=== PATIENT | female | born 1980 | race Hispanic/Latino ===

== ENCOUNTER 2017-05-22 10:39 | Emergency (ER) | payer BC ==
--- NOTE | 2017-05-22 12:45 | RAD ---
RADIOGRAPH CHEST 2 VIEWS: Date: 05/22/17. Time: 11:28 a.m. HISTORY: A 36-year-old female with cough and fever, and hemoptysis. COMPARISON: 01/22/11. FINDINGS: There is a small focal airspace density in the apicoposterior segment of the left upper lobe, new sin ce the prior study. Cardiomediastinal silhouette is normal. No pleural effusion or pneumothorax. T he right lung is clear. IMPRESSION: Left upper lobe pneumonia. JASWINDER [] POS: [facility]
== END 2017-05-22 11:57 | disposition home or self-care (01) ==
LOC: SCSER 10:39
DX: J18.9 Pneumonia, unspecified organism (principal)
CPT/HCPCS: 71046

== ENCOUNTER 2017-05-25 09:38 | Emergency (ER) | payer BC ==
--- NOTE | 2017-05-25 10:22 | RAD ---
PA AND LATERAL CHEST: History: Cough. Pneumonia. Comparison: 05-22-17 FINDINGS: The heart size is normal. The lungs are well expanded with infiltrate in the left upper lobe. No pneu mothoraces or pleural effusions are seen. No new infiltrates are identified. IMPRESSION: Stable left upper lobe pneumonia. POS: [facility]
== END 2017-05-25 10:16 | disposition home or self-care (01) ==
LOC: SCSER 09:38
DX: J18.9 Pneumonia, unspecified organism (principal); Z79.899 Other long term (current) drug therapy
CPT/HCPCS: 71046

== ENCOUNTER 2017-06-27 18:00 | Outpatient (CLI) | payer BC | END 2017-06-27 18:01 | disposition home or self-care (01) | LOC: SLEEPLAB 18:00 | PROVIDERS: ATTEND Family Medicine | DX: G47.33 Obstructive sleep apnea (adult) (pediatric) (principal); E66.9 Obesity, unspecified; R06.83 Snoring | CPT/HCPCS: 95806 ==

== ENCOUNTER 2017-10-10 09:45 | Outpatient (CLI) | payer BC | END 2017-10-10 09:46 | disposition home or self-care (01) | LOC: BICMAMMO 09:45 | PROVIDERS: ATTEND Family Medicine | DX: N63.31 Unspecified lump in axillary tail of the right breast (principal) | CPT/HCPCS: 77066; G0279 ==